=== PATIENT | female | born 1965 | race Two or more races ===

== ENCOUNTER → 2024-05-13 | Outpatient (CLI) | payer OTHER, MEDICAID, SELFPAY ==
--- NOTE | 2024-05-13 10:19 | XR_ITS ---
Examination: Foot bilateral, 6 views Technique: AP, oblique, lateral views each foot total 6 views Date and time of exam: May 13, 2024 1023 hours INDICATIONS: Bunion pain right foot one year heel pain one year FINDINGS: Moderate osteopenia Moderate hallux valgus right bunion deformity Mild left bunion deformity Bilateral mild narrowing first metatarsophalangeal joints No plantar bony calcaneal spurs No fracture or dislocation IMPRESSION: Moderate hallux valgus right bunion deformity Mild left bunion deformity
== END | disposition home or self-care (01) ==
PROVIDERS: PCP Nurse Practitioner; Referring Provider Nurse Practitioner; Visit Provider Nurse Practitioner
DX: M20.12 Hallux valgus (acquired), left foot (principal); M20.11 Hallux valgus (acquired), right foot; M21.612 Bunion of left foot; M21.611 Bunion of right foot
CPT/HCPCS: 73630

== ENCOUNTER → 2024-06-20 | Outpatient (CLI) | payer OTHER, MEDICAID, SELFPAY ==
--- NOTE | 2024-06-20 14:30 | XR_ITS ---
Examination: Thyroid sonography complete TECHNIQUE: Multiple high-resolution grayscale sonographic images thyroid lobes are carful analysis Exam date and time: June 20, 2024 1455 hours INDICATIONS: Swelling in the neck region this month FINDINGS: Right thyroid 3.7 x 1.5 x 1.5 cm Upper pole cyst 4 x 6 mm Lower pole cyst 3 x 3 mm Left thyroid 5.1 x 1.6 x 1.1 cm Midpole cyst 3 x 3 mm Lower pole cyst 4 x 3 mm No solid nodules IMPRESSION: Benign thyroid cysts No solid nodules
== END | disposition home or self-care (01) ==
PROVIDERS: PCP Nurse Practitioner; Referring Provider Nurse Practitioner; Visit Provider Nurse Practitioner
DX: E04.1 Nontoxic single thyroid nodule (principal)
CPT/HCPCS: 76536

== ENCOUNTER → 2024-06-28 | Outpatient (CLI) | payer OTHER, MEDICAID, SELFPAY ==
--- NOTE | 2024-06-28 13:45 | XR_ITS ---
Examination: Screening digital mammography, bilateral Computer aided detection 3-D breast Tomosynthesis, bilateral Date and time of exam: June 20, 2024 at 1400 hours Compared to mammograms dating to May 27, 2012 Indication: Screening Technique: Nonmagnified MLO, CC views of the breasts to been obtained, reconstructed from 3-D Tomosynthesis images. R2 computer aided detection program utilized for evaluation of suspicious masses and/or abnormal calcifications. 3-D Tomosynthesis images obtained. Findings: Scattered areas of fibroglandular density. Benign calcifications. No interval suspicious masses Impression: BI-RADS category II: Benign Findings. Recommend 1 year follow-up mammogram.
== END | disposition home or self-care (01) ==
LOC: CDIM 13:36
PROVIDERS: Referring Provider Nurse Practitioner; Visit Provider Nurse Practitioner
DX: Z12.31 Encounter for screening mammogram for malignant neoplasm of breast (principal); R92.323 Mammographic fibroglandular density, bilateral breasts; R92.1 Mammographic calcification found on diagnostic imaging of breast
CPT/HCPCS: 77063; 77067

== ENCOUNTER → 2024-06-29 | Outpatient (CLI) | payer OTHER, MEDICAID, SELFPAY ==
--- NOTE | 2024-06-29 07:00 | XR_ITS ---
MRI shoulder, right, without contrast. Date and time: June 29, 2024 0709 hours INDICATIONS: Injury to the shoulder 2010, thrown off a horse with shoulder pain Technique: Multiple axial, sagittal and coronal sections of the shoulder have been obtained. Siemens high-resolution 1.5 Jody MRI scanner is utilized. Axial fat-suppressed sections, TR 2350, TE 18 T2-weighted coronal fat-saturated images, TR 3500, TE 7100 T1-weighted coronal images, TR 500, TE 15 T2-weighted sagittal fat-saturated images, TR 3500, TE 57 T1-weighted sagittal sections, TR 504, TE 13. Findings: Supraspinatus tendon insertion is abnormal, 8mm partial-thickness articular surface tear, coronal image 9. Infraspinatus tendon insertion is intact. Subscapularis insertion is intact. Subscapularis bursa is small. Long head of the biceps is in the bicipital groove. No definite tear of the biceps superior labral anchor is seen. Retraction of the musculotendinous junction of the rotator cuff is not seen . Tendinosis pattern is moderate. Distance between the acromium and humeral head is 5.9 mm Atrophy of the supraspinatus muscle is mild . Atrophy of the infraspinatus muscle is not seen. Sagittal sections demonstrate a horizontal acromion. Acromioclavicular joint demonstrates mild osteoarthritis . Osacromiale is not identified. Fraying and irregularity anterior superior posterior labral margins. Bony glenoid fossa on the sagittal sections does not demonstrate osseous defect. Occult fracture or area of avascular necrosis is not seen. Acromioclavicular joint separation is not visible. Defect in the posterolateral margin of the humeral head is not seen Impression: 8mm partial thickness articular surface tear supraspinatous Fraying and irregularity anterior superior posterior labral margins
--- NOTE | 2024-06-29 07:30 | XR_ITS ---
Examination: MRI cervical spine without intravenous contrast Date and time of exam: June 29, 2024 0709 hours INDICATIONS: Injury to the neck throat from a horse 2010 with persistent neck pain with numbness in the arms Technique: Multiple axial and sagittal sections of the cervical spine to been obtained. T2 weighted sagittal sections, TR 3, 270, TE 117 T1-weighted sagittal sections, TR 500, TE 11 T1-weighted axial sections, TR 607, TE 12, axial sections TR 18, TE 27 and T2 weighted transverse sections, TR 3920, TE 122. Findings: Straightening normal cervical lordosis. No cervical fracture. Adequate marrow signal cervical vertebral bodies Mild disc narrowing C4-C5 Moderate disc narrowing C5-C6, C6-C7 Diffuse cervical disc desiccation No localized enlargement cervical cord No cervical syrinx cavity C2-C3 no disc protrusion C3-C4 1 mm left paracentral disc protrusion, C4-C5 mild right neural foraminal stenosis C5-C6 2 mm central subarticular osteophyte disc complex, moderate bilateral neural foraminal stenosis C6-C7 uncinate process hypertrophy with advanced bilateral neural foraminal stenosis C7-T1 no disc protrusion IMPRESSION: C5-C6 2 mm central subarticular osteophyte disc complex with moderate bilateral neural foraminal stenosis C6-C7 uncinate process hypertrophy bilaterally with advanced bilateral neural foraminal stenosis
== END | disposition home or self-care (01) ==
PROVIDERS: PCP Nurse Practitioner; Referring Provider Nurse Practitioner; Visit Provider Nurse Practitioner
DX: M25.78 Osteophyte, vertebrae (principal); M48.02 Spinal stenosis, cervical region; S46.011A Strain of muscle(s) and tendon(s) of the rotator cuff of right shoulder, initial encounter; V80.919A Animal-rider injured in unspecified transport accident, initial encounter
CPT/HCPCS: 72141; 73221